=== PATIENT | male | born 1955 | race Caucasian/White ===

== ENCOUNTER 2022-04-19 09:43 | Inpatient (IN) ==
[~2022-04-19 09:43] MED LIST: CLORAZEPATE 3.75 MG TABLET PO PRN; GLUCAGON 1 MG VIAL IM PRN; NITROGLYCERIN SL 0.4 MG TABLET SL PRN
[2022-04-19] MEDS ORDERED: DEXTROSE 10% 250 ML BAG IV PRN (09:48)
[2022-04-19 10:22] LABS: Basophils # 0.1 10*3/uL (0.0-0.2); Eosinophils # 0.1 10*3/uL (0.0-0.87); Eosinophils % 1.4 % (0.00-10.9); Hematocrit 47.9 VOL% (42.0-52.0); Hemoglobin 15.8 GM/DL (14.0-18.0); Immature Granulocytes % 0.4 %; Immature Granulocytes Absolute 0.03 #; Lymphocytes # 1.8 10*3/uL (1.4-4.0); Mean Corpuscular Volume 93.7 FL (87-102); Mean Platelet Volume 10.4 FL (9.6-12.0); Monocytes # 0.6 10*3/uL (0.11-0.8); Monocytes % 8.5 % (1.7-12.7); Neutrophils % 62.7 % (38.7-73.9); Platelet Count 268 T/CUMM (130-400); Red Blood Count 5.11 MC/CUMM (3.8-5.5); Red Cell Distribution Width 12.1 % (9.3-17.3)
[2022-04-19 10:57] LABS: Albumin 4.3 G/DL (3.4-5.0); Bilirubin,Total 0.7 MG/DL (0.20-1.00); Calcium 10.4 MG/DL (8.5-10.1); Osmolality,Calculated 274.7 MOS/KG (273-304); Potassium 4.2 MMOL/L (3.5-5.1); Total Protein 8.6 G/DL (6.4-8.2)
[2022-04-19] MEDS ORDERED: hydrALAZINE 20 MG/1 ML VIAL IV PRN (11:46)
[2022-04-19] MEDS: CHLORHEXIDINE 0.12% ORAL RINSE 60 ML BOTTLE SWISH/SPIT SCH ×2 (11:52→21:04)
[2022-04-19] MEDS: CHLORHEXIDINE 4% SOLN 118 ML BOTTLE TOP SCH ×2 (15:24→21:04)
[2022-04-19 16:40] LABS: Arterial Base Excess iSTAT 0 MMOL/L (-2.5-2.5); Arterial Bicarbonate iSTAT 25.9 MMOL/L (20-26); Arterial O2 Saturation iSTAT 97 % (95-100); Arterial PCO2 iSTAT 44 MM HG (35-48); Arterial PO2 iSTAT 92 MM HG (80-95); Arterial Total CO2 iSTAT 27 MMO/L (23-27)
[2022-04-19] MEDS ORDERED: ROSUVASTATIN 20 MG TABLET PO SCH (21:00)
[2022-04-19] MEDS: ASCORBIC ACID 500 MG TABLET PO SCH (21:03)
[2022-04-20] MEDS ORDERED: PAPAVERINE 60 MG/2 ML VIAL ONE (04:17)
[2022-04-20] MEDS ORDERED: VANCOMYCIN 1,000 MG VIAL ONE (04:18)
[2022-04-20] MEDS ORDERED: VANCOMYCIN 500 MG VIAL ONE (04:18)
[2022-04-20] MEDS: CHLORHEXIDINE 4% SOLN 118 ML BOTTLE TOP SCH (04:19)
[2022-04-20] MEDS ORDERED: CEFUROXIME INJ 1,500 MG in SODIUM CHLORIDE 0.9% 100 ML IV ONE (05:00)
[2022-04-20] MEDS ORDERED: DIAZEPAM 5 MG TABLET PO ONE (05:00)
[2022-04-20] MEDS ORDERED: FAMOTIDINE 20 MG TABLET PO ONE (05:00)
[2022-04-20] MEDS ORDERED: SODIUM CHLORIDE 0.9% 1,000 ML IV ONE ×2 (05:49→11:11)
[2022-04-20] MEDS ORDERED: ETOMIDATE 40 MG/20 ML VIAL IV ONE (05:49)
[2022-04-20] MEDS ORDERED: LIDOCAINE 2% 5 ML VIAL ONE ×3 (05:49→10:49)
[2022-04-20] MEDS ORDERED: VECURONIUM 10 MG VIAL IV ONE ×4 (05:49→09:31)
[2022-04-20] MEDS ORDERED: SODIUM CHLORIDE 0.9% 250 ML IV ONE (05:49)
[2022-04-20] MEDS ORDERED: LACTATED RINGERS 1,000 ML IV ONE (05:49)
[2022-04-20] MEDS ORDERED: SODIUM CHLORIDE 0.9% 100 ML IV ONE (05:49)
[2022-04-20] MEDS ORDERED: HEPARIN/NACL 0.9% 2 UNITS/ML 0 UNIT/0 ML BAG IV ONE (05:49)
[2022-04-20] MEDS ORDERED: SEVOFLURANE 1 UNIT/15 MINUTE INH ONE ×8 (05:49→10:57)
[2022-04-20] MEDS ORDERED: AMINOCAPROIC ACID 5,000 MG/20 ML VIAL ONE (05:49)
[2022-04-20] MEDS ORDERED: MIDAZOLAM 10 MG/2 ML VIAL ONE ×4 (05:50)
[2022-04-20] MEDS ORDERED: SUFentanil 250 MCG/5 ML AMP ONE ×2 (06:04)
[2022-04-20] MEDS ORDERED: MINERAL OIL/PETROLATUM OPH OINT 3.5 GM TUBE ONE (06:05)
[2022-04-20 07:17] LABS: ABG Base Excess 2.5 MMOL/L (-2.5-2.5); ABG HCO3 26.6 MMOL/L (20-26); ABG Oxygen Saturation 99.8 % (95-100); ABG PCO2 39.1 MM HG (35-48); ABG PH 7.441 (7.35-7.45); Glucose Heart Surgery 117 MG/DL (74-106); Hematocrit Heart Surgery 41.5 PERCENT (42-52); Hemoglobin Heart Surgery 13.5 G/DL (14.0-18.0); Ionized Calcium Arterial 1.18 MMOL/L (1.21-1.46); PCO2 Patient Temp Arterial 39.1 MMHG; PH Patient Temp Arterial 7.441; Patient Temperature 37 CELCIUS; Potassium Heart/CVR 3.8 MMOL/L (3.5-5.1); Sodium Heart/CVR 137 MMOL/L (135-145)
[2022-04-20 07:25] LABS: Bacteria,Urine Occasional /HPF (Few); Mucus,Urine Occasional /LPF (Occasional); RBC,Urine 2 /HPF (0-4)
[2022-04-20 07:26] LABS: Bilirubin,Urine Negative (Negative); Blood, Urine Negative (Negative); Glucose,Urine (UA) Negative (Negative); Ketones,Urine 15 mg/dL (Negative); Nitrite,Urine Negative (Negative); Protein,Urine Negative (Negative); Urine Appearance Clear (Clear); Urine Color Yellow (Yellow); Urine Specific Gravity 1.025 (1.001-1.035); Urine Urobilinogen 0.2 eU/dL (<2.0); Urine pH 6.5 (4.5-8.0)
[2022-04-20] MEDS ORDERED: NITROPRUSSIDE 50 MG/2 ML VIAL ONE (07:54)
[2022-04-20] MEDS ORDERED: POTASSIUM CHLORIDE RIDER 20 MEQ/100 ML PREMIX IV ONE (07:54)
[2022-04-20] MEDS ORDERED: PHENYLEPHRINE DRIP 40 MG/250 ML PREMIX IV ONE (07:54)
[2022-04-20] MEDS ORDERED: SODIUM BICARBONATE 50 MEQ/50 ML VIAL IV ONE ×2 (07:54→10:51)
[2022-04-20] MEDS ORDERED: CALCIUM CHLORIDE 1,000 MG/10 ML SYRINGE IV ONE (07:55)
[2022-04-20] MEDS ORDERED: ALBUMIN 5% 25.0 GM/500 ML VIAL IV ONE (07:56)
[2022-04-20 08:57] LABS: Hematocrit Heart Surgery 25.9 PERCENT (42-52); Hemoglobin Heart Surgery 8.3 G/DL (14.0-18.0); PCO2 Patient Temp Venous 36.2 MM HG; PH Patient Temp Venous 7.456; PO2 Patient Temp Venous 40.9 MM HG; Potassium Heart/CVR 5.1 MMOL/L (3.5-5.1); VBG Base Excess 1.9 MEQ/L (0-4); VBG HCO3 25.9 MEQ/L (24-28); VBG Oxygen Saturation 86.3 %; VBG PCO2 41.8 MMHG (41-51); VBG PH 7.412; VBG PO2 50.2 MMHG (17-40); VBG Total CO2 24.8 MMOL/L
[2022-04-20] MEDS ORDERED: HEPARIN/NACL 0.9% 2 UNITS/ML 1,000 UNIT/500 ML BAG IV ONE (09:10)
[2022-04-20 09:26] LABS: Hematocrit Heart Surgery 28.5 PERCENT (42-52); Hemoglobin Heart Surgery 9.2 G/DL (14.0-18.0); PCO2 Patient Temp Venous 34.4 MM HG; PH Patient Temp Venous 7.473; PO2 Patient Temp Venous 34.9 MM HG; Potassium Heart/CVR 5.4 MMOL/L (3.5-5.1); VBG Oxygen Saturation 84.4 %; VBG PCO2 43.8 MMHG (41-51); VBG PH 7.4; VBG PO2 49.2 MMHG (17-40)
[2022-04-20] MEDS ORDERED: ESMOLOL 100 MG/10 ML VIAL IV ONE (09:45)
[2022-04-20 09:57] LABS: Hematocrit Heart Surgery 30.5 PERCENT (42-52); Hemoglobin Heart Surgery 9.8 G/DL (14.0-18.0); PCO2 Patient Temp Venous 40.2 MM HG; PH Patient Temp Venous 7.425; PO2 Patient Temp Venous 39.6 MM HG; Potassium Heart/CVR 5.8 MMOL/L (3.5-5.1); VBG Base Excess 1.9 MEQ/L (0-4); VBG HCO3 25.8 MEQ/L (24-28); VBG Oxygen Saturation 78.5 %; VBG PCO2 42.2 MMHG (41-51); VBG PH 7.41; VBG PO2 42.5 MMHG (17-40); VBG Total CO2 24.5 MMOL/L
[2022-04-20] MEDS ORDERED: CALCIUM CHLORIDE 1,000 MG/10 ML VIAL IV ONE ×2 (10:18→11:28)
[2022-04-20 10:43] LABS: ABG Base Excess 0.6 MMOL/L (-2.5-2.5); ABG Oxygen Saturation 99.9 % (95-100); ABG PCO2 37.2 MM HG (35-48); ABG PH 7.429 (7.35-7.45); ABG TCO2 22.4 MMOL/L (23-27); Glucose Heart Surgery 233 MG/DL (74-106); Hematocrit Heart Surgery 31.1 PERCENT (42-52); Ionized Calcium Arterial 1.26 MMOL/L (1.21-1.46); PCO2 Patient Temp Arterial 35.5 MMHG; PH Patient Temp Arterial 7.444; Patient Temperature 36 CELCIUS; Potassium Heart/CVR 4.3 MMOL/L (3.5-5.1); Sodium Heart/CVR 132 MMOL/L (135-145)
[2022-04-20] MEDS ORDERED: ALBUMIN 25% 25 GM/100 ML VIAL IV ONE (10:49)
[2022-04-20] MEDS ORDERED: methylPREDNISolone SOD SUC 1,000 MG/8 ML VIAL ONE (10:49)
[2022-04-20] MEDS ORDERED: MAGNESIUM SULFATE 5 GM/10 ML VIAL IV ONE (10:49)
[2022-04-20] MEDS ORDERED: DEXTROSE 5% KCL 20 MEQ 20 MEQ/1,000 ML BAG IV ONE (10:50)
[2022-04-20] MEDS ORDERED: HEPARIN 10,000 UNIT/10 ML VIAL ONE (10:50)
[2022-04-20] MEDS ORDERED: ALBUMIN 5% 12.5 GM/250 ML VIAL IV ONE (10:50)
[2022-04-20] MEDS ORDERED: PROTAMINE SULFATE 250 MG/25 ML VIAL IV ONE (10:50)
[2022-04-20] MEDS ORDERED: FUROSEMIDE 20 MG/2 ML VIAL ONE (10:51)
[2022-04-20] MEDS ORDERED: MANNITOL 12.5 GM/50 ML VIAL IV ONE (10:51)
[2022-04-20] MEDS ORDERED: PROTAMINE SULFATE 50 MG/5 ML VIAL IV ONE (10:51)
[2022-04-20] MEDS ORDERED: CHLORHEXIDINE 4% SOLN 118 ML BOTTLE TOP PRN (11:02)
[2022-04-20] MEDS ORDERED: MAGNESIUM SULF RIDER 4 GM/100 ML PREMIX IV PRN (11:02)
[2022-04-20] MEDS ORDERED: NITROPRUSSIDE 100 MG in DEXTROSE 5% 250 ML IV PRN (11:02)
[2022-04-20] MEDS ORDERED: SODIUM CHLORIDE 0.45% 1,000 ML IV SCH ×2 (11:02)
[2022-04-20] MEDS ORDERED: INSULIN REGULAR 100 UNIT/ML IV ONE (11:02)
[2022-04-20] MEDS ORDERED: INSULIN REGULAR DRIP 100 ML IV SCH (11:02)
[2022-04-20] MEDS ORDERED: CALCIUM CHLORIDE 1,000 MG/10 ML SYRINGE IV PRN (11:02)
[2022-04-20] MEDS ORDERED: MAGNESIUM SULF RIDER 2 GM/50 ML PREMIX IV PRN (11:02)
[2022-04-20] MEDS ORDERED: INSULIN REGULAR 100 UNIT/ML IV PRN (11:02)
[2022-04-20] MEDS ORDERED: DEXTROSE 50% 25 GM/50 ML SYRINGE IV PRN ×2 (11:02)
[2022-04-20] MEDS ORDERED: LACTATED RINGERS 250 ML IV PRN (11:02)
[2022-04-20] MEDS ORDERED: ONDANSETRON 4 MG/2 ML VIAL IV PRN (11:02)
[2022-04-20] MEDS ORDERED: ACETAMINOPHEN 650 MG SUPP RECTAL PRN (11:02)
[2022-04-20] MEDS ORDERED: VECURONIUM 10 MG VIAL IV PRN ×2 (11:02)
[2022-04-20] MEDS ORDERED: MORPHINE 10 MG/1 ML VIAL IV PRN (11:02)
[2022-04-20] MEDS ORDERED: MIDAZOLAM 10 MG/2 ML VIAL IV PRN (11:02)
[2022-04-20] MEDS ORDERED: POTASSIUM CHLORIDE RIDER 10 MEQ/100 ML PREMIX IV PRN (11:02)
[2022-04-20] MEDS ORDERED: MIDAZOLAM 2 MG/2 ML VIAL IV PRN (11:02)
[2022-04-20] MEDS: PHENYLEPHRINE DRIP 40 MG/250 ML PREMIX IV PRN ×2 (11:47→23:57)
[2022-04-20] MEDS ORDERED: PHENYLEPHRINE DRIP 20 MG/250 ML PREMIX IV ONE (12:02)
[2022-04-20 12:32] LABS: ABG Base Excess -0.9 MMOL/L (-2.5-2.5); ABG HCO3 23.7 MMOL/L (20-26); ABG Oxygen Saturation 99.6 % (95-100); ABG PH 7.371 (7.35-7.45); ABG TCO2 22.5 MMOL/L (23-27); Glucose Heart Surgery 210 MG/DL (74-106); Hematocrit Heart Surgery 27.3 PERCENT (42-52); Hemoglobin Heart Surgery 8.8 G/DL (14.0-18.0); Potassium Heart/CVR 3.2 MMOL/L (3.5-5.1)
[2022-04-20 12:33] LABS: Basophils # 0.1 10*3/uL (0.0-0.2); Basophils % 0.3 % (0.0-0.8); Eosinophils # 0.1 10*3/uL (0.0-0.87); Eosinophils % 0.5 % (0.00-10.9); Hematocrit 25.7 VOL% (42.0-52.0); Hemoglobin 8.7 GM/DL (14.0-18.0); Immature Granulocytes % 0.5 %; Immature Granulocytes Absolute 0.08 #; Lymphocytes # 1.6 10*3/uL (1.4-4.0); Lymphocytes % 10.1 % (21.2-54.2); Mean Corpuscular HGB Conc 33.9 GM/DL (32-36); Mean Corpuscular Volume 92.4 FL (87-102); Monocytes # 0.5 10*3/uL (0.11-0.8); Monocytes % 3.2 % (1.7-12.7); Neutrophils % 85.4 % (38.7-73.9); Platelet Count 185 T/CUMM (130-400); Red Blood Count 2.78 MC/CUMM (3.8-5.5); Red Cell Distribution Width 12.1 % (9.3-17.3); White Blood Count 15.5 T/CUMM (4-12)
[2022-04-20] MEDS: POTASSIUM CHLORIDE RIDER 20 MEQ/100 ML PREMIX IV PRN ×5 (12:40→20:33)
[2022-04-20 12:58] LABS: CKMB % 8.08 %
[2022-04-20 13:01] LABS: High Sensitive Troponin I* 3160.6 ng/L (0-78)
[2022-04-20 13:02] LABS: Albumin 3.3 G/DL (3.4-5.0); Bilirubin,Total 0.8 MG/DL (0.20-1.00); Calcium 10.9 MG/DL (8.5-10.1); Osmolality,Calculated 286.3 MOS/KG (273-304); Potassium 3.2 MMOL/L (3.5-5.1); Total Protein 5.6 G/DL (6.4-8.2)
[2022-04-20 14:35] LABS: ABG Base Excess 0.9 MMOL/L (-2.5-2.5); ABG HCO3 25.2 MMOL/L (20-26); ABG Oxygen Saturation 99.3 % (95-100); ABG PCO2 43.2 MM HG (35-48); ABG PH 7.388 (7.35-7.45); ABG TCO2 23.9 MMOL/L (23-27); Glucose Heart Surgery 203 MG/DL (74-106); Hematocrit Heart Surgery 29.5 PERCENT (42-52); Hemoglobin Heart Surgery 9.5 G/DL (14.0-18.0); Potassium Heart/CVR 3.9 MMOL/L (3.5-5.1)
[2022-04-20] MEDS: ALBUMIN 5% 12.5 GM/250 ML VIAL IV PRN ×2 (14:36→15:40)
[2022-04-20] MEDS: SODIUM CHLORIDE 0.9% 1,000 ML IV SCH (14:48)
[2022-04-20] MEDS: CHLORHEXIDINE 0.12% ORAL RINSE 60 ML BOTTLE SWISH/SPIT SCH ×2 (14:48→22:07)
[2022-04-20] MEDS: ASCORBIC ACID 500 MG TABLET PO SCH (14:48)
[2022-04-20 15:58] LABS: ABG Base Excess -0.4 MMOL/L (-2.5-2.5); ABG HCO3 24.1 MMOL/L (20-26); ABG Oxygen Saturation 99.1 % (95-100); ABG PCO2 55.6 MM HG (35-48); ABG PH 7.293 (7.35-7.45); ABG TCO2 24.8 MMOL/L (23-27); Glucose Heart Surgery 193 MG/DL (74-106); Hematocrit Heart Surgery 30.3 PERCENT (42-52); Hemoglobin Heart Surgery 9.8 G/DL (14.0-18.0); Potassium Heart/CVR 4.6 MMOL/L (3.5-5.1)
[2022-04-20] MEDS ORDERED: DEXMEDETOMIDINE 200 MCG in SODIUM CHLORIDE 0.9% 48 ML IV PRN (16:40)
[2022-04-20 17:17] LABS: ABG HCO3 24.4 MMOL/L (20-26); ABG Oxygen Saturation 99.4 % (95-100); ABG PCO2 43.1 MM HG (35-48); ABG PH 7.376 (7.35-7.45); ABG TCO2 23.1 MMOL/L (23-27); Glucose Heart Surgery 149 MG/DL (74-106); Hematocrit Heart Surgery 30.3 PERCENT (42-52); Hemoglobin Heart Surgery 9.8 G/DL (14.0-18.0); Potassium Heart/CVR 3.9 MMOL/L (3.5-5.1)
[2022-04-20 18:41] LABS: ABG Base Excess -0.5 MMOL/L (-2.5-2.5); ABG HCO3 24.1 MMOL/L (20-26); ABG Oxygen Saturation 99.4 % (95-100); ABG PCO2 38.3 MM HG (35-48); ABG PH 7.405 (7.35-7.45); ABG TCO2 21.9 MMOL/L (23-27); Glucose Heart Surgery 129 MG/DL (74-106); Hematocrit Heart Surgery 29.9 PERCENT (42-52); Hemoglobin Heart Surgery 9.7 G/DL (14.0-18.0); Potassium Heart/CVR 4.2 MMOL/L (3.5-5.1)
[2022-04-20] MEDS: CEFUROXIME INJ 1,500 MG in SODIUM CHLORIDE 0.9% 100 ML IV SCH (19:41)
[2022-04-20 20:23] LABS: ABG Base Excess -0.3 MMOL/L (-2.5-2.5); ABG HCO3 24.2 MMOL/L (20-26); ABG Oxygen Saturation 99.4 % (95-100); ABG PCO2 37.7 MM HG (35-48); ABG PH 7.412 (7.35-7.45); ABG TCO2 21.6 MMOL/L (23-27); Glucose Heart Surgery 115 MG/DL (74-106); Hematocrit Heart Surgery 33.2 PERCENT (42-52); Hemoglobin Heart Surgery 10.8 G/DL (14.0-18.0); Potassium Heart/CVR 3.7 MMOL/L (3.5-5.1)
[2022-04-20 20:36] LABS: CKMB % 7.69 %
[2022-04-20 20:39] LABS: High Sensitive Troponin I* 5511.3 ng/L (0-78)
[2022-04-20] MEDS ORDERED: LACTATED RINGERS 1,000 ML IV PRN (21:10)
[2022-04-20 21:25] LABS: ABG Base Excess -1.5 MMOL/L (-2.5-2.5); ABG HCO3 23.2 MMOL/L (20-26); ABG Oxygen Saturation 99.3 % (95-100); ABG PCO2 40.8 MM HG (35-48); ABG PH 7.371 (7.35-7.45); ABG TCO2 20.8 MMOL/L (23-27); Glucose Heart Surgery 115 MG/DL (74-106); Potassium Heart/CVR 4.3 MMOL/L (3.5-5.1)
[2022-04-20 23:10] LABS: ABG Base Excess -0.4 MMOL/L (-2.5-2.5); ABG HCO3 24.1 MMOL/L (20-26); ABG Oxygen Saturation 99.3 % (95-100); ABG PCO2 42.4 MM HG (35-48); ABG PH 7.375 (7.35-7.45); ABG TCO2 22.7 MMOL/L (23-27); Glucose Heart Surgery 117 MG/DL (74-106); Hematocrit Heart Surgery 30.1 PERCENT (42-52); Hemoglobin Heart Surgery 9.7 G/DL (14.0-18.0); Potassium Heart/CVR 4.2 MMOL/L (3.5-5.1)
[2022-04-20 23:12] LABS: Hematocrit 28.4 VOL% (42.0-52.0); Hemoglobin 9.4 GM/DL (14.0-18.0)
[2022-04-20 23:56] LABS: PT Patient Result 11.5 SECS (10.1-12.1); Partial Thromboplastin Time 27.4 SECS (23.7-32.9)
[2022-04-21 00:51] LABS: ABG Base Excess -0.1 MMOL/L (-2.5-2.5); ABG HCO3 24.3 MMOL/L (20-26); ABG Oxygen Saturation 99.4 % (95-100); ABG PCO2 40.4 MM HG (35-48); ABG PH 7.394 (7.35-7.45); ABG TCO2 22.6 MMOL/L (23-27); Glucose Heart Surgery 114 MG/DL (74-106); Hemoglobin Heart Surgery 9.7 G/DL (14.0-18.0); Potassium Heart/CVR 4.2 MMOL/L (3.5-5.1)
[2022-04-21 02:07] LABS: ABG HCO3 24.4 MMOL/L (20-26); ABG Oxygen Saturation 99.4 % (95-100); ABG PCO2 42.6 MM HG (35-48); ABG PH 7.379 (7.35-7.45); Glucose Heart Surgery 112 MG/DL (74-106); Hematocrit Heart Surgery 29.5 PERCENT (42-52); Hemoglobin Heart Surgery 9.5 G/DL (14.0-18.0); Potassium Heart/CVR 4.1 MMOL/L (3.5-5.1)
[2022-04-21 03:57] LABS: Basophils % 0.1 % (0.0-0.8); Hematocrit 30.3 VOL% (42.0-52.0); Hemoglobin 10.3 GM/DL (14.0-18.0); Immature Granulocytes % 0.6 %; Lymphocytes # 0.8 10*3/uL (1.4-4.0); Lymphocytes % 4.9 % (21.2-54.2); Mean Corpuscular Volume 89.6 FL (87-102); Monocytes # 1.2 10*3/uL (0.11-0.8); Monocytes % 7.3 % (1.7-12.7); Neutrophils % 87.1 % (38.7-73.9); Platelet Count 180 T/CUMM (130-400); Red Blood Count 3.38 MC/CUMM (3.8-5.5); Red Cell Distribution Width 14.1 % (9.3-17.3); White Blood Count 16.2 T/CUMM (4-12)
[2022-04-21 03:58] LABS: ABG Base Excess -0.3 MMOL/L (-2.5-2.5); ABG HCO3 24.2 MMOL/L (20-26); ABG PCO2 43.3 MM HG (35-48); ABG PH 7.371 (7.35-7.45); ABG TCO2 22.7 MMOL/L (23-27); Glucose Heart Surgery 111 MG/DL (74-106); Hematocrit Heart Surgery 32.7 PERCENT (42-52); Hemoglobin Heart Surgery 10.6 G/DL (14.0-18.0); Potassium Heart/CVR 4.2 MMOL/L (3.5-5.1)
[2022-04-21 04:17] LABS: Lymphocytes 7 % (20-55); Platelet Estimate Adequate; Total Cells Counted 100
[2022-04-21 04:18] LABS: CKMB % 13.9 %
[2022-04-21 04:20] LABS: High Sensitive Troponin I* 12181.5 ng/L (0-78)
[2022-04-21 04:21] LABS: Albumin 3.4 G/DL (3.4-5.0); Bilirubin,Direct 0.19 MG/DL (0.0-0.20); Bilirubin,Total 0.7 MG/DL (0.20-1.00); Calcium 9.5 MG/DL (8.5-10.1); Osmolality,Calculated 282.1 MOS/KG (273-304); Potassium 4.2 MMOL/L (3.5-5.1); Total Protein 5.7 G/DL (6.4-8.2)
[2022-04-21] MEDS ORDERED: FUROSEMIDE 40 MG/4 ML VIAL IV ONE (05:15)
[2022-04-21] MEDS: CEFUROXIME INJ 1,500 MG in SODIUM CHLORIDE 0.9% 100 ML IV SCH ×2 (06:29→18:54)
[2022-04-21] MEDS: ALBUMIN 5% 12.5 GM/250 ML VIAL IV PRN (07:47)
[2022-04-21] MEDS ORDERED: oxyCODONE/ACETAMINOPHEN 5-325 MG TABLET PO PRN (07:49)
[2022-04-21] MEDS: ASPIRIN EC 81 MG TABLET PO SCH (08:26)
[2022-04-21] MEDS: CHLORHEXIDINE 0.12% ORAL RINSE 60 ML BOTTLE SWISH/SPIT SCH ×3 (08:26→20:28)
[2022-04-21] MEDS: DOCUSATE SODIUM 100 MG CAPSULE PO SCH ×2 (08:26→20:27)
[2022-04-21] MEDS: ASCORBIC ACID 500 MG TABLET PO SCH ×2 (08:26→20:27)
[2022-04-21] MEDS: PANTOPRAZOLE 40 MG TABLET PO SCH (08:26)
[2022-04-21] MEDS ORDERED: MAGNESIUM HYDROXIDE SUSP 30 ML UDCUP PO PRN (09:20)
[2022-04-21] MEDS ORDERED: POTASSIUM CHLORIDE 20 MEQ TABLET PO PRN (09:20)
[2022-04-21] MEDS ORDERED: ALUMINUM/MAGNES/SIMETH MAX STR 30 ML UDCUP PO PRN (09:20)
[2022-04-21] MEDS ORDERED: ONDANSETRON 4 MG/2 ML VIAL IV PRN (09:20)
[2022-04-21] MEDS ORDERED: SODIUM CHLOR 0.45% KCL 20 MEQ 20 MEQ/1,000 ML BAG IV SCH (09:20)
[2022-04-21] MEDS ORDERED: MAGNESIUM SULF RIDER 4 GM/100 ML PREMIX IV PRN (09:20)
[2022-04-21] MEDS ORDERED: MAGNESIUM SULF RIDER 2 GM/50 ML PREMIX IV PRN (09:20)
[2022-04-21] MEDS ORDERED: DEXTROSE 10% 250 ML BAG IV PRN (09:20)
[2022-04-21] MEDS ORDERED: GLUCAGON 1 MG VIAL IM PRN (09:20)
[2022-04-21] MEDS ORDERED: ACETAMINOPHEN 325 MG TABLET PO PRN (09:20)
[2022-04-21] MEDS: KETOROLAC 30 MG/1 ML VIAL IV SCH ×3 (10:13→20:28)
[2022-04-21] MEDS: FERROUS SULFATE 325 MG TABLET PO SCH (10:13)
[2022-04-21 11:27] LABS: CKMB % 14.24 %
[2022-04-21 11:32] LABS: High Sensitive Troponin I* 19207.1 ng/L (0-78)
[2022-04-21] MEDS: INSULIN REGULAR 100 UNIT/ML SUBCUT SCH ×3 (13:12→20:55)
[2022-04-21] MEDS: ROSUVASTATIN 20 MG TABLET PO SCH (20:27)
[2022-04-21] MEDS: ZALEPLON 5 MG CAPSULE PO PRN (20:28)
[2022-04-21 21:28] LABS: CKMB % 11.33 %
[2022-04-21 21:35] LABS: High Sensitive Troponin I* 37043.1 ng/L (0-78)
[2022-04-22] MEDS: KETOROLAC 30 MG/1 ML VIAL IV SCH ×4 (03:30→21:10)
[2022-04-22 04:21] LABS: Hematocrit 30.8 VOL% (42.0-52.0); Hemoglobin 10.4 GM/DL (14.0-18.0); Immature Granulocytes Absolute 0.22 #; Lymphocytes # 1.1 10*3/uL (1.4-4.0); Lymphocytes % 5.1 % (21.2-54.2); Mean Corpuscular HGB Conc 33.8 GM/DL (32-36); Mean Corpuscular Volume 90.9 FL (87-102); Mean Platelet Volume 11.6 FL (9.6-12.0); Monocytes # 1.2 10*3/uL (0.11-0.8); Monocytes % 5.7 % (1.7-12.7); Neutrophils % 88.2 % (38.7-73.9); Platelet Count 176 T/CUMM (130-400); Red Blood Count 3.39 MC/CUMM (3.8-5.5); Red Cell Distribution Width 14.5 % (9.3-17.3); White Blood Count 21.6 T/CUMM (4-12)
[2022-04-22 04:40] LABS: Bilirubin,Direct 0.26 MG/DL (0.0-0.20); Bilirubin,Total 0.8 MG/DL (0.20-1.00); Calcium 8.8 MG/DL (8.5-10.1); Osmolality,Calculated 272.2 MOS/KG (273-304); Potassium 4.5 MMOL/L (3.5-5.1); Total Protein 5.8 G/DL (6.4-8.2)
[2022-04-22 05:15] LABS: Albumin 3.3 G/DL (3.4-5.0); Bilirubin,Direct 0.24 MG/DL (0.0-0.20); Bilirubin,Indirect 0.5 MG/DL (0.0-1.0); Bilirubin,Total 0.7 MG/DL (0.20-1.00); CKMB % 9.34 %; High Sensitive Troponin I* 41877.1 ng/L (0-78); Total Protein 5.4 G/DL (6.4-8.2)
[2022-04-22 05:29] LABS: Anisocytosis 1+; Band Neutrophils 28 % (0-10); Lymphocytes 6 % (20-55); Platelet Estimate Normal; Total Cells Counted 100
[2022-04-22] MEDS ORDERED: FUROSEMIDE 40 MG/4 ML VIAL IV ONE (06:00)
[2022-04-22] MEDS: ASCORBIC ACID 500 MG TABLET PO SCH ×2 (08:42→21:45)
[2022-04-22] MEDS: ASPIRIN EC 81 MG TABLET PO SCH (08:42)
[2022-04-22] MEDS: PANTOPRAZOLE 40 MG TABLET PO SCH (08:42)
[2022-04-22] MEDS: DOCUSATE SODIUM 100 MG CAPSULE PO SCH ×2 (08:42→21:45)
[2022-04-22] MEDS: CHLORHEXIDINE 0.12% ORAL RINSE 60 ML BOTTLE SWISH/SPIT SCH ×2 (09:00→21:45)
[2022-04-22] MEDS: INSULIN REGULAR 100 UNIT/ML SUBCUT SCH ×4 (15:25→21:45)
[2022-04-22] MEDS: FERROUS SULFATE 325 MG TABLET PO SCH (15:30)
[2022-04-22] MEDS: ROSUVASTATIN 20 MG TABLET PO SCH (21:45)
[2022-04-23] MEDS: KETOROLAC 30 MG/1 ML VIAL IV SCH ×4 (03:31→21:25)
[2022-04-23 05:36] LABS: Basophils % 0.1 % (0.0-0.8); Eosinophils % 0.1 % (0.00-10.9); Hematocrit 28.5 VOL% (42.0-52.0); Hemoglobin 9.8 GM/DL (14.0-18.0); Immature Granulocytes % 0.8 %; Immature Granulocytes Absolute 0.12 #; Lymphocytes # 1.2 10*3/uL (1.4-4.0); Lymphocytes % 7.9 % (21.2-54.2); Mean Corpuscular HGB Conc 34.4 GM/DL (32-36); Mean Corpuscular Volume 88.8 FL (87-102); Mean Platelet Volume 11.6 FL (9.6-12.0); Monocytes # 1.3 10*3/uL (0.11-0.8); Monocytes % 8.3 % (1.7-12.7); Neutrophils % 82.8 % (38.7-73.9); Platelet Count 173 T/CUMM (130-400); Red Blood Count 3.21 MC/CUMM (3.8-5.5); Red Cell Distribution Width 13.5 % (9.3-17.3); White Blood Count 15.1 T/CUMM (4-12)
[2022-04-23 06:08] LABS: Albumin 2.7 G/DL (3.4-5.0); Bilirubin,Direct 0.18 MG/DL (0.0-0.20); Bilirubin,Indirect 0.5 MG/DL (0.0-1.0); Bilirubin,Total 0.7 MG/DL (0.20-1.00); CKMB % 4.62 %; High Sensitive Troponin I* 19427.6 ng/L (0-78); Total Protein 5.5 G/DL (6.4-8.2)
[2022-04-23 06:26] LABS: Calcium 8.5 MG/DL (8.5-10.1); Osmolality,Calculated 266.7 MOS/KG (273-304)
[2022-04-23 07:50] LABS: Albumin 2.8 G/DL (3.4-5.0); Bilirubin,Direct 0.2 MG/DL (0.0-0.20); Bilirubin,Total 0.7 MG/DL (0.20-1.00); Calcium 9.1 MG/DL (8.5-10.1); Osmolality,Calculated 264.8 MOS/KG (273-304); Potassium 3.9 MMOL/L (3.5-5.1); Total Protein 5.5 G/DL (6.4-8.2)
[2022-04-23] MEDS: INSULIN REGULAR 100 UNIT/ML SUBCUT SCH ×4 (07:56→21:21)
[2022-04-23] MEDS: PANTOPRAZOLE 40 MG TABLET PO SCH (09:27)
[2022-04-23] MEDS: FERROUS SULFATE 325 MG TABLET PO SCH (09:27)
[2022-04-23] MEDS: ASCORBIC ACID 500 MG TABLET PO SCH ×2 (09:27→21:25)
[2022-04-23] MEDS: ASPIRIN EC 81 MG TABLET PO SCH (09:27)
[2022-04-23] MEDS: CHLORHEXIDINE 0.12% ORAL RINSE 60 ML BOTTLE SWISH/SPIT SCH ×2 (09:28→21:26)
[2022-04-23] MEDS: DOCUSATE SODIUM 100 MG CAPSULE PO SCH ×2 (09:28→21:26)
[2022-04-23] MEDS: ROSUVASTATIN 20 MG TABLET PO SCH (21:26)
[2022-04-24] MEDS: KETOROLAC 30 MG/1 ML VIAL IV SCH ×4 (04:05→21:47)
[2022-04-24 05:20] LABS: Basophils % 0.2 % (0.0-0.8); Eosinophils # 0.1 10*3/uL (0.0-0.87); Eosinophils % 0.5 % (0.00-10.9); Hematocrit 28.3 VOL% (42.0-52.0); Hemoglobin 9.4 GM/DL (14.0-18.0); Immature Granulocytes % 0.7 %; Immature Granulocytes Absolute 0.09 #; Lymphocytes # 1.5 10*3/uL (1.4-4.0); Mean Corpuscular HGB Conc 33.2 GM/DL (32-36); Mean Corpuscular Volume 91.6 FL (87-102); Mean Platelet Volume 11.3 FL (9.6-12.0); Monocytes # 1.3 10*3/uL (0.11-0.8); Monocytes % 10.3 % (1.7-12.7); Neutrophils % 76.3 % (38.7-73.9); Platelet Count 209 T/CUMM (130-400); Red Blood Count 3.09 MC/CUMM (3.8-5.5); Red Cell Distribution Width 13.3 % (9.3-17.3); White Blood Count 12.1 T/CUMM (4-12)
[2022-04-24 06:11] LABS: Calcium 8.6 MG/DL (8.5-10.1); Osmolality,Calculated 257.2 MOS/KG (273-304); Potassium 3.9 MMOL/L (3.5-5.1)
[2022-04-24 06:15] LABS: CKMB % 3.15 %; High Sensitive Troponin I* 12765.3 ng/L (0-78)
[2022-04-24] MEDS: DOCUSATE SODIUM 100 MG CAPSULE PO SCH ×2 (09:55→21:49)
[2022-04-24] MEDS: ASCORBIC ACID 500 MG TABLET PO SCH ×2 (09:55→21:48)
[2022-04-24] MEDS: METOPROLOL TARTRATE 25 MG TABLET PO SCH ×2 (09:55→21:47)
[2022-04-24] MEDS: PANTOPRAZOLE 40 MG TABLET PO SCH (09:56)
[2022-04-24] MEDS: AMIODARONE 200 MG TABLET PO SCH ×2 (09:56→21:48)
[2022-04-24] MEDS: ASPIRIN EC 81 MG TABLET PO SCH (09:56)
[2022-04-24] MEDS: FERROUS SULFATE 325 MG TABLET PO SCH (09:56)
[2022-04-24] MEDS: CHLORHEXIDINE 0.12% ORAL RINSE 60 ML BOTTLE SWISH/SPIT SCH ×2 (10:00→21:50)
[2022-04-24] MEDS: INSULIN REGULAR 100 UNIT/ML SUBCUT SCH ×4 (11:26→21:45)
[2022-04-24] MEDS: ZALEPLON 5 MG CAPSULE PO PRN (21:49)
[2022-04-24] MEDS: ROSUVASTATIN 20 MG TABLET PO SCH (21:49)
[2022-04-25] MEDS: KETOROLAC 30 MG/1 ML VIAL IV SCH ×2 (03:20→09:13)
[2022-04-25 06:43] LABS: Basophils % 0.3 % (0.0-0.8); Eosinophils # 0.2 10*3/uL (0.0-0.87); Eosinophils % 1.5 % (0.00-10.9); Hematocrit 28.6 VOL% (42.0-52.0); Hemoglobin 9.5 GM/DL (14.0-18.0); Immature Granulocytes % 0.9 %; Lymphocytes # 1.7 10*3/uL (1.4-4.0); Lymphocytes % 15.3 % (21.2-54.2); Mean Corpuscular HGB Conc 33.2 GM/DL (32-36); Mean Platelet Volume 10.5 FL (9.6-12.0); Monocytes # 1.3 10*3/uL (0.11-0.8); Monocytes % 11.8 % (1.7-12.7); Neutrophils % 70.2 % (38.7-73.9); Platelet Count 255 T/CUMM (130-400); Red Blood Count 3.11 MC/CUMM (3.8-5.5); Red Cell Distribution Width 13.4 % (9.3-17.3); White Blood Count 11.1 T/CUMM (4-12)
[2022-04-25 06:56] LABS: Alanine Aminotransferase 65 U/L (16-61); Albumin 2.4 G/DL (3.4-5.0); Alkaline Phosphatase 89 U/L (45-117); Aspartate Amino Transferase 47 U/L (0-37); Bilirubin,Indirect 0.6 MG/DL (0.0-1.0); Blood Urea Nitrogen 19 MG/DL (7-18); Calcium 8.6 MG/DL (8.5-10.1); Carbon Dioxide 28 MMOL/L (21-32); Chloride 96 MMOL/L (98-107); Glucose 99 MG/DL (74-106); Osmolality,Calculated 263.7 MOS/KG (273-304); Potassium 4.2 MMOL/L (3.5-5.1); Sodium 131 MMOL/L (136-145); Total Protein 5.6 G/DL (6.4-8.2)
[2022-04-25] MEDS: INSULIN REGULAR 100 UNIT/ML SUBCUT SCH ×2 (08:22→12:23)
[2022-04-25] MEDS: METOPROLOL TARTRATE 25 MG TABLET PO SCH (09:14)
[2022-04-25] MEDS: FERROUS SULFATE 325 MG TABLET PO SCH (09:14)
[2022-04-25] MEDS: ASCORBIC ACID 500 MG TABLET PO SCH (09:14)
[2022-04-25] MEDS: AMIODARONE 200 MG TABLET PO SCH (09:14)
[2022-04-25] MEDS: PANTOPRAZOLE 40 MG TABLET PO SCH (09:15)
[2022-04-25] MEDS: DOCUSATE SODIUM 100 MG CAPSULE PO SCH (09:15)
[2022-04-25] MEDS: ASPIRIN EC 81 MG TABLET PO SCH (09:15)
[2022-04-25] MEDS: CHLORHEXIDINE 0.12% ORAL RINSE 60 ML BOTTLE SWISH/SPIT SCH (09:19)
[2022-04-25 12:22] VITALS: BP 123/82
== END 2022-04-25 12:22 | disposition home health service (06) | DRG 236 ==
LOC: N.TELEN 09:43 → N.CVR 04-20 11:02 → N.ICU 04-21 09:18 → N.TELES 04-22 17:29

== ENCOUNTER 2022-04-29 08:18 | Inpatient (IN) ==
[2022-04-29 08:59] LABS: Basophils % 0.2 % (0.0-0.8); Eosinophils # 0.1 10*3/uL (0.0-0.87); Eosinophils % 0.6 % (0.00-10.9); Hematocrit 33.1 VOL% (42.0-52.0); Hemoglobin 10.6 GM/DL (14.0-18.0); Immature Granulocytes % 3.1 %; Immature Granulocytes Absolute 0.56 #; Lymphocytes # 1.6 10*3/uL (1.4-4.0); Lymphocytes % 9.1 % (21.2-54.2); Mean Corpuscular Volume 95.1 FL (87-102); Mean Platelet Volume 8.8 FL (9.6-12.0); Monocytes # 1.3 10*3/uL (0.11-0.8); Monocytes % 7.1 % (1.7-12.7); Neutrophils % 79.9 % (38.7-73.9); Platelet Count 562 T/CUMM (130-400); Red Blood Count 3.48 MC/CUMM (3.8-5.5); Red Cell Distribution Width 14.1 % (9.3-17.3); White Blood Count 17.9 T/CUMM (4-12)
[2022-04-29] MEDS ORDERED: DILTIAZEM 100 MG VIAL.ADD IV ONE (09:09)
[2022-04-29] MEDS ORDERED: DILTIAZEM 25 MG/5 ML VIAL IV ONE ×2 (09:09→10:55)
[2022-04-29] MEDS ORDERED: FUROSEMIDE 40 MG/4 ML VIAL IV STA (09:17)
[2022-04-29 09:23] LABS: Band Neutrophils 4 % (0-10); Lymphocytes 13 % (20-55); Macrocytosis Slight; Polychromasia Slight; Total Cells Counted 100
[2022-04-29 09:24] LABS: Platelet Estimate Increased
[2022-04-29 09:37] LABS: Albumin 2.9 G/DL (3.4-5.0); Bilirubin,Total 0.7 MG/DL (0.20-1.00); Calcium 9.2 MG/DL (8.5-10.1); Osmolality,Calculated 261.1 MOS/KG (273-304); Potassium 5.2 MMOL/L (3.5-5.1)
[2022-04-29 10:38] LABS: Thyroid Stimulating Hormone 5.75 uIU/ml (0.358-3.74)
[2022-04-29] MEDS ORDERED: DILTIAZEM 25 MG/5 ML VIAL IV STA ×2 (10:43→11:51)
[2022-04-29] MEDS ORDERED: ONDANSETRON 4 MG/2 ML VIAL IV PRN (11:43)
[2022-04-29] MEDS ORDERED: GLUCAGON 1 MG VIAL IM PRN (11:43)
[2022-04-29] MEDS ORDERED: ACETAMINOPHEN 325 MG TABLET PO PRN (11:43)
[2022-04-29] MEDS ORDERED: oxyCODONE/ACETAMINOPHEN 5-325 MG TABLET PO PRN (11:49)
[2022-04-29] MEDS ORDERED: METOPROLOL TARTRATE 5 MG/5 ML VIAL IV PRN (11:50)
[2022-04-29] MEDS ORDERED: DEXTROSE 10% 250 ML BAG IV PRN (11:58)
[2022-04-29] MEDS: ENOXAPARIN 80 MG/0.8 ML SYRINGE SUBCUT SCH (12:47)
[2022-04-29] MEDS ORDERED: AMIODARONE INJ 150 MG in DEXTROSE 5% 100 ML IV ONE (13:07)
[2022-04-29 13:23] LABS: Calcium 8.6 MG/DL (8.5-10.1); Osmolality,Calculated 261.8 MOS/KG (273-304); Potassium 4.2 MMOL/L (3.5-5.1)
[2022-04-29] MEDS ORDERED: AMIODARONE INJ 450 MG in DEXTROSE 5% 241 ML IV SCH (13:30)
[2022-04-29] MEDS: FUROSEMIDE 40 MG/4 ML VIAL IV SCH (17:00)
[2022-04-29] MEDS: DOXYCYCLINE HYCLATE 100 MG CAPSULE PO SCH (18:33)
[2022-04-29] MEDS ORDERED: PIMECROLIMUS 1% CREAM 30 GM TUBE TOP SCH (21:00)
[2022-04-29] MEDS: ASPIRIN EC 81 MG TABLET PO SCH (21:40)
[2022-04-29] MEDS: ASCORBIC ACID 500 MG TABLET PO SCH (21:41)
[2022-04-29] MEDS: ROSUVASTATIN 20 MG TABLET PO SCH (21:41)
[2022-04-29] MEDS: AMIODARONE 200 MG TABLET PO SCH (21:42)
[2022-04-29] MEDS: DOCUSATE SODIUM 100 MG CAPSULE PO SCH (21:42)
[2022-04-29] MEDS: METOPROLOL TARTRATE 25 MG TABLET PO SCH (21:42)
[2022-04-29] MEDS ORDERED: DOXYCYCLINE HYCLATE 100 MG CAPSULE PO SCH (23:00)
[2022-04-30] MEDS: ENOXAPARIN 80 MG/0.8 ML SYRINGE SUBCUT SCH
[2022-04-30] MEDS: AMIODARONE INJ 450 MG in DEXTROSE 5% 241 ML IV SCH ×2 (01:19→18:04)
[2022-04-30] MEDS: DOXYCYCLINE HYCLATE 100 MG CAPSULE PO SCH ×2 (05:15→18:03)
[2022-04-30 06:14] LABS: Basophils # 0.1 10*3/uL (0.0-0.2); Basophils % 0.4 % (0.0-0.8); Eosinophils # 0.1 10*3/uL (0.0-0.87); Eosinophils % 0.5 % (0.00-10.9); Hematocrit 33.7 VOL% (42.0-52.0); Immature Granulocytes Absolute 0.62 #; Lymphocytes # 2.4 10*3/uL (1.4-4.0); Lymphocytes % 11.5 % (21.2-54.2); Mean Corpuscular HGB Conc 32.6 GM/DL (32-36); Mean Corpuscular Volume 92.1 FL (87-102); Monocytes # 1.5 10*3/uL (0.11-0.8); Monocytes % 7.2 % (1.7-12.7); NRBC # 0.03 10*3/uL; Neutrophils % 77.4 % (38.7-73.9); Platelet Count 588 T/CUMM (130-400); Red Blood Count 3.66 MC/CUMM (3.8-5.5); Red Cell Distribution Width 14.3 % (9.3-17.3); White Blood Count 20.6 T/CUMM (4-12)
[2022-04-30 06:18] LABS: Risk Ratio 2.26; VLDL Cholesterol 16.6 MG/DL
[2022-04-30 06:23] LABS: Albumin 2.7 G/DL (3.4-5.0); Bilirubin,Total 0.5 MG/DL (0.20-1.00); Osmolality,Calculated 264.7 MOS/KG (273-304); Potassium 4.2 MMOL/L (3.5-5.1); Total Protein 6.5 G/DL (6.4-8.2)
[2022-04-30 06:54] LABS: Band Neutrophils 1 % (0-10); Eosinophils 1 % (0-10); Lymphocytes 13 % (20-55); Platelet Estimate Increased; Total Cells Counted 100
[2022-04-30] MEDS ORDERED: DIGOXIN 0.5 MG/2 ML AMP IV SCH (08:30)
[2022-04-30] MEDS: FUROSEMIDE 40 MG/4 ML VIAL IV SCH ×2 (09:09→16:11)
[2022-04-30] MEDS: METOPROLOL TARTRATE 25 MG TABLET PO SCH (09:12)
[2022-04-30] MEDS: ASCORBIC ACID 500 MG TABLET PO SCH ×2 (09:12→21:43)
[2022-04-30] MEDS: PANTOPRAZOLE 40 MG TABLET PO SCH (09:12)
[2022-04-30] MEDS: CHOLECALCIFEROL 5,000 UNIT TABLET PO SCH (09:13)
[2022-04-30] MEDS: MULTIVITAMIN (CENTRUM) TABLET PO SCH (09:13)
[2022-04-30] MEDS: AMIODARONE 200 MG TABLET PO SCH ×2 (09:13→21:43)
[2022-04-30] MEDS: DOCUSATE SODIUM 100 MG CAPSULE PO SCH ×2 (09:13→21:43)
[2022-04-30] MEDS: OMEGA 3 ACID ETHYL ESTERS 1 GM CAPSULE PO SCH (09:13)
[2022-04-30] MEDS: KETOCONAZOLE 2% CREAM 30 GM TUBE TOP SCH (11:07)
[2022-04-30] MEDS: PIMECROLIMUS 1% CREAM 30 GM TUBE TOP SCH ×2 (11:07→21:43)
[2022-04-30] MEDS ORDERED: CALCIUM CARBONATE CHEW 500 MG TABLET PO PRN (12:40)
[2022-04-30] MEDS: cefTRIAXone 1,000 MG in SODIUM CHLORIDE 0.9% 100 ML IV SCH ×2 (21:05)
[2022-04-30] MEDS: ROSUVASTATIN 20 MG TABLET PO SCH (21:42)
[2022-04-30] MEDS: ASPIRIN EC 81 MG TABLET PO SCH (21:43)
[2022-04-30] MEDS: METOPROLOL TARTRATE 50 MG TABLET PO SCH (21:43)
[2022-05-01] MEDS: DOXYCYCLINE HYCLATE 100 MG CAPSULE PO SCH ×2 (05:12→17:35)
[2022-05-01 05:41] LABS: Basophils # 0.1 10*3/uL (0.0-0.2); Basophils % 0.3 % (0.0-0.8); Eosinophils # 0.1 10*3/uL (0.0-0.87); Eosinophils % 0.5 % (0.00-10.9); Hematocrit 32.1 VOL% (42.0-52.0); Hemoglobin 10.6 GM/DL (14.0-18.0); Immature Granulocytes % 2.3 %; Immature Granulocytes Absolute 0.42 #; Lymphocytes # 2.1 10*3/uL (1.4-4.0); Lymphocytes % 11.7 % (21.2-54.2); Mean Corpuscular Volume 92.2 FL (87-102); Mean Platelet Volume 8.7 FL (9.6-12.0); Monocytes # 1.4 10*3/uL (0.11-0.8); Monocytes % 7.6 % (1.7-12.7); Neutrophils % 77.6 % (38.7-73.9); Platelet Count 584 T/CUMM (130-400); Red Blood Count 3.48 MC/CUMM (3.8-5.5); Red Cell Distribution Width 14.2 % (9.3-17.3); White Blood Count 18.3 T/CUMM (4-12)
[2022-05-01 06:06] LABS: % Iron Saturation 10.9 % (18-50); Ferritin 340.1 ng/mL (26-388)
[2022-05-01 06:17] LABS: Folate > 24.00 NG/ML (5.38-24.0); Vitamin B12 1647 PG/ML (211-911)
[2022-05-01 07:14] LABS: Sedimentation Rate-Westergren 72 MM/HR (0-20)
[2022-05-01] MEDS: MULTIVITAMIN (CENTRUM) TABLET PO SCH (08:55)
[2022-05-01] MEDS: AMIODARONE 200 MG TABLET PO SCH ×2 (08:56→21:11)
[2022-05-01] MEDS: DOCUSATE SODIUM 100 MG CAPSULE PO SCH ×2 (08:56→21:10)
[2022-05-01] MEDS: METOPROLOL TARTRATE 50 MG TABLET PO SCH ×2 (08:56→21:11)
[2022-05-01] MEDS: OMEGA 3 ACID ETHYL ESTERS 1 GM CAPSULE PO SCH (08:56)
[2022-05-01] MEDS: ASCORBIC ACID 500 MG TABLET PO SCH ×2 (08:56→21:10)
[2022-05-01] MEDS: PANTOPRAZOLE 40 MG TABLET PO SCH (08:56)
[2022-05-01] MEDS: CHOLECALCIFEROL 5,000 UNIT TABLET PO SCH (08:57)
[2022-05-01] MEDS: FUROSEMIDE 40 MG/4 ML VIAL IV SCH ×2 (08:57→16:26)
[2022-05-01] MEDS: AMIODARONE INJ 450 MG in DEXTROSE 5% 241 ML IV SCH (10:09)
[2022-05-01] MEDS: PIMECROLIMUS 1% CREAM 30 GM TUBE TOP SCH ×2 (10:17→21:13)
[2022-05-01] MEDS: KETOCONAZOLE 2% CREAM 30 GM TUBE TOP SCH (10:17)
[2022-05-01] MEDS ORDERED: POLYETHYLENE GLYCOL POWDER 17 GM PACK PO SCH (10:30)
[2022-05-01] MEDS ORDERED: DIGOXIN 0.125 MG TABLET PO SCH (13:00)
[2022-05-01] MEDS: ROSUVASTATIN 20 MG TABLET PO SCH (21:09)
[2022-05-01] MEDS: ASPIRIN EC 81 MG TABLET PO SCH (21:17)
[2022-05-01] MEDS: cefTRIAXone 1,000 MG in SODIUM CHLORIDE 0.9% 100 ML IV SCH (22:06)
[2022-05-02] MEDS: AMIODARONE INJ 450 MG in DEXTROSE 5% 241 ML IV SCH (00:41)
[2022-05-02 04:54] LABS: Basophils # 0.1 10*3/uL (0.0-0.2); Basophils % 0.4 % (0.0-0.8); Eosinophils # 0.1 10*3/uL (0.0-0.87); Eosinophils % 0.4 % (0.00-10.9); Hematocrit 32.7 VOL% (42.0-52.0); Hemoglobin 10.6 GM/DL (14.0-18.0); Immature Granulocytes % 2.2 %; Immature Granulocytes Absolute 0.42 #; Lymphocytes # 2.6 10*3/uL (1.4-4.0); Lymphocytes % 14.1 % (21.2-54.2); Mean Corpuscular HGB Conc 32.4 GM/DL (32-36); Mean Corpuscular Volume 93.2 FL (87-102); Mean Platelet Volume 8.6 FL (9.6-12.0); Monocytes # 1.5 10*3/uL (0.11-0.8); Monocytes % 7.9 % (1.7-12.7); Platelet Count 602 T/CUMM (130-400); Red Blood Count 3.51 MC/CUMM (3.8-5.5); Red Cell Distribution Width 14.3 % (9.3-17.3); White Blood Count 18.7 T/CUMM (4-12)
[2022-05-02 05:14] LABS: Albumin 2.7 G/DL (3.4-5.0); Bilirubin,Total 0.5 MG/DL (0.20-1.00); Calcium 9.2 MG/DL (8.5-10.1); Osmolality,Calculated 260.9 MOS/KG (273-304); Total Protein 6.1 G/DL (6.4-8.2)
[2022-05-02] MEDS: DOXYCYCLINE HYCLATE 100 MG CAPSULE PO SCH ×2 (06:33→17:20)
[2022-05-02] MEDS: FUROSEMIDE 40 MG/4 ML VIAL IV SCH (08:03)
[2022-05-02] MEDS: MULTIVITAMIN (CENTRUM) TABLET PO SCH (09:19)
[2022-05-02] MEDS: METOPROLOL TARTRATE 50 MG TABLET PO SCH ×2 (09:19→21:13)
[2022-05-02] MEDS: FERROUS SULFATE 325 MG TABLET PO SCH (09:20)
[2022-05-02] MEDS: PANTOPRAZOLE 40 MG TABLET PO SCH (09:20)
[2022-05-02] MEDS: AMIODARONE 200 MG TABLET PO SCH ×2 (09:20→21:13)
[2022-05-02] MEDS: CHOLECALCIFEROL 5,000 UNIT TABLET PO SCH (09:20)
[2022-05-02] MEDS: OMEGA 3 ACID ETHYL ESTERS 1 GM CAPSULE PO SCH (09:20)
[2022-05-02] MEDS: DOCUSATE SODIUM 100 MG CAPSULE PO SCH ×2 (09:20→21:13)
[2022-05-02] MEDS: ASCORBIC ACID 500 MG TABLET PO SCH ×2 (09:20→21:13)
[2022-05-02] MEDS: POLYETHYLENE GLYCOL POWDER 17 GM PACK PO SCH (10:37)
[2022-05-02] MEDS: KETOCONAZOLE 2% CREAM 30 GM TUBE TOP SCH (10:37)
[2022-05-02] MEDS: PIMECROLIMUS 1% CREAM 30 GM TUBE TOP SCH ×2 (10:37→21:11)
[2022-05-02 11:03] LABS: Hemoglobin A1 (Alkaline) 97.5 % (96.5-98.5); Hemoglobin A2 (Alkaline) 2.5 % (1.5-3.5)
[2022-05-02 11:25] LABS: Hyaline Casts,Urine 12 /LPF (0-3); Mucus,Urine Occasional /LPF (Occasional); RBC,Urine <1 /HPF (0-4)
[2022-05-02 11:26] LABS: Bilirubin,Urine Negative (Negative); Blood, Urine Negative (Negative); Glucose,Urine (UA) Negative (Negative); Ketones,Urine Negative (Negative); Nitrite,Urine Negative (Negative); Protein,Urine Negative (Negative); Urine Appearance Clear (Clear); Urine Color Yellow (Yellow); Urine Specific Gravity 1.015 (1.001-1.035); Urine Urobilinogen 0.2 eU/dL (<2.0)
[2022-05-02] MEDS: ASPIRIN EC 81 MG TABLET PO SCH (21:12)
[2022-05-02] MEDS: ROSUVASTATIN 20 MG TABLET PO SCH (21:13)
[2022-05-02] MEDS: cefTRIAXone 1,000 MG in SODIUM CHLORIDE 0.9% 100 ML IV SCH (21:13)
[2022-05-03] MEDS: DOXYCYCLINE HYCLATE 100 MG CAPSULE PO SCH (06:08)
[2022-05-03 06:19] LABS: Basophils # 0.1 10*3/uL (0.0-0.2); Basophils % 0.4 % (0.0-0.8); Eosinophils # 0.1 10*3/uL (0.0-0.87); Eosinophils % 0.4 % (0.00-10.9); Hematocrit 33.7 VOL% (42.0-52.0); Hemoglobin 10.7 GM/DL (14.0-18.0); Immature Granulocytes % 1.2 %; Immature Granulocytes Absolute 0.19 #; Lymphocytes # 2.6 10*3/uL (1.4-4.0); Lymphocytes % 16.8 % (21.2-54.2); Mean Corpuscular HGB Conc 31.8 GM/DL (32-36); Mean Corpuscular Volume 95.5 FL (87-102); Mean Platelet Volume 8.6 FL (9.6-12.0); Monocytes # 1.1 10*3/uL (0.11-0.8); Monocytes % 6.9 % (1.7-12.7); Neutrophils % 74.3 % (38.7-73.9); Platelet Count 565 T/CUMM (130-400); Red Blood Count 3.53 MC/CUMM (3.8-5.5); Red Cell Distribution Width 14.6 % (9.3-17.3); White Blood Count 15.7 T/CUMM (4-12)
[2022-05-03 06:37] LABS: Calcium 9.5 MG/DL (8.5-10.1); Osmolality,Calculated 271.2 MOS/KG (273-304); Potassium 4.5 MMOL/L (3.5-5.1)
[2022-05-03] MEDS ORDERED: FUROSEMIDE 40 MG/4 ML VIAL IV SCH (09:00)
[2022-05-03] MEDS: CHOLECALCIFEROL 5,000 UNIT TABLET PO SCH (09:04)
[2022-05-03] MEDS: MULTIVITAMIN (CENTRUM) TABLET PO SCH (09:04)
[2022-05-03] MEDS: DOCUSATE SODIUM 100 MG CAPSULE PO SCH (09:04)
[2022-05-03] MEDS: PANTOPRAZOLE 40 MG TABLET PO SCH (09:04)
[2022-05-03] MEDS: ASCORBIC ACID 500 MG TABLET PO SCH (09:04)
[2022-05-03] MEDS: AMIODARONE 200 MG TABLET PO SCH (09:04)
[2022-05-03] MEDS: METOPROLOL TARTRATE 50 MG TABLET PO SCH (09:05)
[2022-05-03] MEDS: OMEGA 3 ACID ETHYL ESTERS 1 GM CAPSULE PO SCH (09:05)
[2022-05-03] MEDS: FERROUS SULFATE 325 MG TABLET PO SCH (09:05)
[2022-05-03] MEDS: POLYETHYLENE GLYCOL POWDER 17 GM PACK PO SCH (09:30)
[2022-05-03] MEDS: KETOCONAZOLE 2% CREAM 30 GM TUBE TOP SCH (09:30)
[2022-05-03] MEDS: PIMECROLIMUS 1% CREAM 30 GM TUBE TOP SCH (09:30)
[2022-05-03 11:32] VITALS: BP 97/65
[2022-05-03 17:26] LABS: Soluble Transf Receptor (sTfR) 3.1 mg/L (1.8 - 4.6)
[2022-05-03] MEDS ORDERED: APIXABAN 5 MG TABLET PO SCH (21:00)
== END 2022-05-03 14:07 | disposition home health service (06) | DRG 291 ==
LOC: N.ED 08:18 → SUATTDRO 11:43 → N.EDINP 11:43 → N.TELES 15:49
PROVIDERS: ADMIT Internal Medicine; ATTEND Hospitalist

== ENCOUNTER 2022-05-23 20:12 | Inpatient (IN) ==
[2022-05-23 23:21] LABS: Basophils % 0.3 % (0.0-0.8); Eosinophils % 0.1 % (0.00-10.9); Hematocrit 42.8 VOL% (42.0-52.0); Hemoglobin 13.2 GM/DL (14.0-18.0); Immature Granulocytes % 0.7 %; Immature Granulocytes Absolute 0.11 #; Lymphocytes # 1.5 10*3/uL (1.4-4.0); Lymphocytes % 9.5 % (21.2-54.2); Mean Corpuscular HGB Conc 30.8 GM/DL (32-36); Mean Corpuscular Volume 96.4 FL (87-102); Mean Platelet Volume 9.5 FL (9.6-12.0); Monocytes # 0.8 10*3/uL (0.11-0.8); Monocytes % 5.4 % (1.7-12.7); Platelet Count 465 T/CUMM (130-400); Red Blood Count 4.44 MC/CUMM (3.8-5.5); Red Cell Distribution Width 15.3 % (9.3-17.3); White Blood Count 15.3 T/CUMM (4-12)
[2022-05-23 23:40] LABS: Calcium 8.6 MG/DL (8.5-10.1); Osmolality,Calculated 281.7 MOS/KG (273-304); Potassium 3.9 MMOL/L (3.5-5.1)
[2022-05-24] MEDS ORDERED: LEVOFLOXACIN INJ 750 MG/150 ML PREMIX IV STA (01:07)
[2022-05-24] MEDS ORDERED: SODIUM CHLORIDE 0.9% 500 ML IV STA (01:14)
[2022-05-24] MEDS ORDERED: ALBUTEROL/IPRATROPIUM 3 ML NEB RESP TX STA (01:15)
[2022-05-24] MEDS ORDERED: DEXTROSE 10% 250 ML BAG IV PRN (02:21)
[2022-05-24] MEDS ORDERED: hydrALAZINE 20 MG/1 ML VIAL IV PRN (02:21)
[2022-05-24] MEDS ORDERED: ONDANSETRON 4 MG/2 ML VIAL IV PRN (02:21)
[2022-05-24] MEDS ORDERED: ACETAMINOPHEN 325 MG TABLET PO PRN (02:21)
[2022-05-24] MEDS ORDERED: GLUCAGON 1 MG VIAL IM PRN (02:21)
[2022-05-24 06:07] LABS: Bacteria,Urine Occasional /HPF (Few); Glucose,Urine (UA) Negative (Negative); Hyaline Casts,Urine 11 /LPF (0-3); Ketones,Urine 15 mg/dL (Negative); Mucus,Urine Many /LPF (Occasional); Protein,Urine 100 mg/dL (Negative); RBC,Urine 2 /HPF (0-4); Squamous Epithelial Cell,Urine Occasional /HPF (0-10); Urine Appearance Clear (Clear); Urine Color Yellow (Yellow)
[2022-05-24 06:08] LABS: Bilirubin,Urine Negative (Negative); Blood, Urine Trace mg/dL (Negative); Nitrite,Urine Negative (Negative); Urine Urobilinogen 0.2 eU/dL (<2.0)
[2022-05-24] MEDS: ALBUTEROL/IPRATROPIUM 3 ML NEB RESP TX SCH ×3 (07:10→21:54)
[2022-05-24] MEDS ORDERED: AZITHROMYCIN INJ 500 MG in SODIUM CHLORIDE 0.9% 250 ML IV SCH (09:00)
[2022-05-24] MEDS: ASCORBIC ACID 500 MG TABLET PO SCH (09:40)
[2022-05-24] MEDS: METOPROLOL TARTRATE 50 MG TABLET PO SCH ×2 (09:40→21:27)
[2022-05-24] MEDS: FUROSEMIDE 40 MG TABLET PO SCH (09:40)
[2022-05-24] MEDS: AMIODARONE 200 MG TABLET PO SCH ×2 (09:40→21:29)
[2022-05-24] MEDS: DOCUSATE SODIUM 100 MG CAPSULE PO SCH ×2 (09:40→21:27)
[2022-05-24] MEDS: APIXABAN 5 MG TABLET PO SCH ×2 (09:40→21:27)
[2022-05-24] MEDS: POTASSIUM CHLORIDE 20 MEQ TABLET PO SCH (09:40)
[2022-05-24] MEDS: PANTOPRAZOLE 40 MG TABLET PO SCH (09:40)
[2022-05-24] MEDS: cefTRIAXone 1,000 MG in SODIUM CHLORIDE 0.9% 100 ML IV SCH (09:44)
[2022-05-24] MEDS: CHOLECALCIFEROL 5,000 UNIT TABLET PO SCH (10:20)
[2022-05-24] MEDS: MULTIVITAMIN (CENTRUM) TABLET PO SCH (13:00)
[2022-05-24] MEDS: OMEGA 3 ACID ETHYL ESTERS 1 GM CAPSULE PO SCH (13:00)
[2022-05-24] MEDS: LORATADINE 10 MG TABLET PO SCH (13:00)
[2022-05-24] MEDS ORDERED: FUROSEMIDE 40 MG/4 ML VIAL IV ONE (15:34)
[2022-05-24] MEDS ORDERED: methylPREDNISolone SOD SUC 40 MG/1 ML VIAL IV SCH (16:00)
[2022-05-24] MEDS: methylPREDNISolone SOD SUC 40 MG/1 ML VIAL IV SCH (19:50)
[2022-05-24] MEDS ORDERED: INFLUENZA VIRUS VACCINE 0.5 ML SYRINGE IM ONE (21:00)
[2022-05-24] MEDS: ROSUVASTATIN 20 MG TABLET PO SCH (21:27)
[2022-05-24] MEDS: ASPIRIN EC 81 MG TABLET PO SCH (21:27)
[2022-05-25] MEDS: ALBUTEROL/IPRATROPIUM 3 ML NEB RESP TX SCH ×4 (00:06→19:07)
[2022-05-25] MEDS: methylPREDNISolone SOD SUC 40 MG/1 ML VIAL IV SCH ×2 (01:30→10:05)
[2022-05-25] MEDS: DOCUSATE SODIUM 100 MG CAPSULE PO SCH ×3 (01:44→20:44)
[2022-05-25 05:10] LABS: Basophils % 0.1 % (0.0-0.8); Hematocrit 35.6 VOL% (42.0-52.0); Hemoglobin 11.1 GM/DL (14.0-18.0); Lymphocytes # 0.6 10*3/uL (1.4-4.0); Lymphocytes % 5.9 % (21.2-54.2); Mean Corpuscular HGB Conc 31.2 GM/DL (32-36); Mean Corpuscular Volume 94.7 FL (87-102); Mean Platelet Volume 9.5 FL (9.6-12.0); Monocytes # 0.2 10*3/uL (0.11-0.8); Platelet Count 331 T/CUMM (130-400); Red Blood Count 3.76 MC/CUMM (3.8-5.5); Red Cell Distribution Width 15.1 % (9.3-17.3); White Blood Count 10.3 T/CUMM (4-12)
[2022-05-25 05:32] LABS: Eosinophils 2 % (0-10); Hypochromia Slight; Lymphocytes 6 % (20-55); Total Cells Counted 100
[2022-05-25 05:33] LABS: Microcytosis Slight; Polychromasia Slight
[2022-05-25 05:35] LABS: Calcium 8.5 MG/DL (8.5-10.1); Osmolality,Calculated 284.4 MOS/KG (273-304); Potassium 3.7 MMOL/L (3.5-5.1)
[2022-05-25] MEDS: APIXABAN 5 MG TABLET PO SCH ×2 (10:03→20:44)
[2022-05-25] MEDS: ASCORBIC ACID 500 MG TABLET PO SCH (10:03)
[2022-05-25] MEDS: AMIODARONE 200 MG TABLET PO SCH ×2 (10:03→20:43)
[2022-05-25] MEDS: POTASSIUM CHLORIDE 20 MEQ TABLET PO SCH (10:03)
[2022-05-25] MEDS: PANTOPRAZOLE 40 MG TABLET PO SCH (10:03)
[2022-05-25] MEDS: FUROSEMIDE 40 MG TABLET PO SCH (10:04)
[2022-05-25] MEDS: cefTRIAXone 1,000 MG in SODIUM CHLORIDE 0.9% 100 ML IV SCH (10:04)
[2022-05-25] MEDS: CHOLECALCIFEROL 5,000 UNIT TABLET PO SCH (10:04)
[2022-05-25] MEDS: METOPROLOL TARTRATE 50 MG TABLET PO SCH ×2 (10:04→20:44)
[2022-05-25] MEDS: MULTIVITAMIN (CENTRUM) TABLET PO SCH (12:00)
[2022-05-25] MEDS: OMEGA 3 ACID ETHYL ESTERS 1 GM CAPSULE PO SCH (12:00)
[2022-05-25] MEDS: LORATADINE 10 MG TABLET PO SCH (12:00)
[2022-05-25] MEDS: predniSONE 20 MG TABLET PO SCH ×2 (14:43→20:44)
[2022-05-25] MEDS: ROSUVASTATIN 20 MG TABLET PO SCH (20:44)
[2022-05-25] MEDS: ASPIRIN EC 81 MG TABLET PO SCH (20:44)
[2022-05-26] MEDS: ALBUTEROL/IPRATROPIUM 3 ML NEB RESP TX SCH ×2 (00:22→06:59)
[2022-05-26 08:32] VITALS: BP 110/73
[2022-05-26] MEDS: PANTOPRAZOLE 40 MG TABLET PO SCH (09:22)
[2022-05-26] MEDS: AMIODARONE 200 MG TABLET PO SCH (09:22)
[2022-05-26] MEDS: DOCUSATE SODIUM 100 MG CAPSULE PO SCH (09:22)
[2022-05-26] MEDS: predniSONE 20 MG TABLET PO SCH (09:23)
[2022-05-26] MEDS: ASCORBIC ACID 500 MG TABLET PO SCH (09:23)
[2022-05-26] MEDS: METOPROLOL TARTRATE 50 MG TABLET PO SCH (09:23)
[2022-05-26] MEDS: CHOLECALCIFEROL 5,000 UNIT TABLET PO SCH (09:23)
[2022-05-26] MEDS: POTASSIUM CHLORIDE 20 MEQ TABLET PO SCH (09:23)
[2022-05-26] MEDS: cefTRIAXone 1,000 MG in SODIUM CHLORIDE 0.9% 100 ML IV SCH (09:24)
[2022-05-26] MEDS: APIXABAN 5 MG TABLET PO SCH (09:24)
[2022-05-26] MEDS: FUROSEMIDE 40 MG TABLET PO SCH (09:24)
== END 2022-05-26 10:31 | disposition home or self-care (01) | DRG 205 ==
LOC: N.ED 20:12 → N.EDINP 05-24 02:21 → N.TELEN 05-24 17:38
PROVIDERS: ADMIT Internal Medicine; ATTEND Internal Medicine